=== PATIENT | female | born 1970 | race Caucasian/White ===

== ENCOUNTER 2022-08-24 09:55 | Outpatient (REF) | payer BC, SELFPAY ==
[2022-08-24 09:05] LABS: Creatinine,Urine 66.45 mg/dL; Sodium, Urine 77 mmol/L
[2022-08-24 09:13] LABS: CLEAVED CELLS 154 mmol/24h (40-220); Creatinine,24hr Ur 1.33 g/24hr (0.60-1.80); Total Volume 2000 ml
[2022-08-26 09:45] LABS: Timed Urine Volume 2000 mL; Uric Acid Urine 24hr 600 mg/24hrs (250-750)
[2022-08-26 09:49] LABS: Magnesium Random Urine 5.3 mg/dL (See Note); Timed Urine Volume 2000 mL
[2022-08-26 09:53] LABS: Calcium Urine 15.4 mg/dL (See Note); Calcium Urine 24 hr 308 mg/24hrs (100-300); Timed Urine Volume 2000 mL
[2022-08-27 10:32] LABS: Citrate Excretion, 24hr, U 678 mg/24 h (385 - 1191); Urine Volume 2000 mL
[2022-08-27 13:02] LABS: Oxalate, U 0.22 mmol/24 h; Oxalate, U 19.4 mg/24 h (9.7 - 40.5); Urine Volume 2000 mL
== END 2022-08-24 09:56 | disposition home or self-care (01) ==
LOC: LBN 09:55
PROVIDERS: PCP Family Medicine; Visit Provider Urology
DX: N20.0 Calculus of kidney (principal)
CPT/HCPCS: 82507; 83735; 81050; 82340; 82570; 83945; 84300; 84560

== ENCOUNTER 2022-10-06 02:36 | Outpatient (CLI) | payer BC, SELFPAY ==
[2022-10-06 17:57] LABS: Potassium 3.8 mmol/L (3.5-5.1)
== END 2022-10-06 02:37 | disposition home or self-care (01) ==
LOC: LBO 02:36
PROVIDERS: PCP Family Medicine; Visit Provider Urology
DX: R82.994 Hypercalciuria (principal)
CPT/HCPCS: 36415; 84132